=== PATIENT | female | born 1995 | race Asian ===

== ENCOUNTER 2019-07-31 07:14 | Emergency (ER) | payer OTHER ==
[~2019-07-31] VITALS: Ht 160 cm; Wt 63.6 kg
[~2019-07-31 07:14] MED LIST: BIRTH CONTROL PILL; MULTIPLE VITAMI1 CAP PO
[2019-07-31 07:18] VITALS: TEMP 98.4
[2019-07-31 07:33] LABS: COLLECTION METHOD CLEAN CATCH
[2019-07-31 07:43] LABS: MUCOUS Present /lpf; PH 5 (5-8); URINE APPEARANCE Cloudy; URINE BACTERIA Rare /hpf; URINE BILIRUBIN Negative (NEGATIVE); URINE BLOOD Negative (NEGATIVE); URINE COLOR Yellow; URINE GLUCOSE Negative (NEGATIVE); URINE KETONE Negative (NEGATIVE); URINE LEUKOCYTE ESTERASE Negative (NEGATIVE); URINE NITRATE Negative (NEGATIVE); URINE PROTEIN(semi-quant) Negative (NEGATIVE); URINE RBC 0-2 /hpf; URINE UROBILINOGEN Negative (NEGATIVE)
[2019-07-31 07:54] LABS: BASO % 0.1 % (0.0-2.0); EOS % 0.4 % (0-4.0); GRAN # 6.2 (1.4-6.5); GRAN % 81.3 % (42.2-75.2); HEMATOCRIT 40.6 % (37.0-47.0); HEMOGLOBIN 13.6 g/dl (12.5-16.0); LYMPH # 1.1 (1.2-3.4); LYMPH % 14.9 % (20.0-51.0); MEAN CELL VOLUME 96 fl (80.0-100.0); MEAN CORPUSCULAR HEMOGLOBIN 32 pg (27.0-31.0); MEAN CORPUSCULAR HGB CONC 34 g/dl (33.0-37.0); MEAN PLATELET VOLUME 9.4 fl (7.4-10.4); MONO # 0.2 (0.1-0.6); MONO % 3.2 % (1.7-9.3); PLATELET COUNT 230 K/mm3 (130-400); RED BLOOD COUNT 4.22 M/mm3 (4.10-5.30); REDCELL DISTRIBUTION WIDTH-CV 11.9 % (11.5-14.5)
[2019-07-31 08:09] LABS: ALANINE AMINOTRANSFERASE 17 U/L (9-52); ALBUMIN 4.7 gm/dL (3.5-5.0); ALKALINE PHOSPHATASE 43 U/L (50-136); ANION GAP 10 mmol/L (7-16); AST,SGOT 43 U/L (15-37); BILIRUBIN,TOTAL 0.7 mg/dL (0.0-1.0); BLOOD UREA NITROGEN 15 mg/dL (7-17); CALCIUM 9.1 mg/dL (8.4-10.2); CARBON DIOXIDE 24 mmol/L (22-30); CHLORIDE 106 mmol/L (98-107); CREATININE, serum 0.78 (0.52-1.25); GLUCOSE 103 mg/dL (74-106); LIPASE 49 U/L (23-300); POTASSIUM 4.4 mmol/L (3.4-5.0); SODIUM 140 mmol/L (137-145); TOTAL PROTEIN 8.6 gm/dL (6.4-8.2)
[2019-07-31 08:18] LABS: C-REACTIVE PROTEIN < 0.5 mg/dL (0.0-0.9)
[2019-07-31] MEDS ORDERED: ZOFRAN ODT4 MG PO (09:36)
[2019-07-31 09:53] VITALS: BP 112/72; PULSE 78
== END 2019-07-31 09:53 | disposition home or self-care (01) ==
LOC: COL.ER 07:14
PROVIDERS: Emergency Medicine
DX: R11.2 Nausea with vomiting, unspecified (principal); R19.7 Diarrhea, unspecified
CPT/HCPCS: J2405; J7030

== ENCOUNTER 2023-07-06 18:50 | Emergency (ER) | payer OTHER ==
[~2023-07-06] VITALS: Ht 160 cm; Wt 63.6 kg
[~2023-07-06 18:50] MED LIST changes: +ZOFRAN ODT4 MG PO
[2023-07-06 21:44] LABS: BASO % 0.3 % (0.0-2.0); EOS % 0.5 % (0.0-4.0); GRAN # 5.9 K/mm3 (1.4-6.5); GRAN % 67.2 % (42.2-75.2); HEMATOCRIT 40.6 % (37.0-47.0); HEMOGLOBIN 13.7 g/dl (12.5-16.0); LYMPH % 22.3 % (20.0-51.0); MEAN CELL VOLUME 96 fl (80.0-100.0); MEAN CORPUSCULAR HEMOGLOBIN 32 pg (27-31); MEAN CORPUSCULAR HGB CONC 34 g/dl (33.0-37.0); MEAN PLATELET VOLUME 9.3 fl (7.4-10.4); MONO # 0.8 K/mm3 (0.1-0.6); MONO % 9.6 % (1.7-9.3); PLATELET COUNT 238 K/mm3 (130-400); RED BLOOD COUNT 4.25 M/mm3 (4.10-5.30); REDCELL DISTRIBUTION WIDTH-CV 11.9 % (11.5-14.5)
[2023-07-06 22:00] LABS: ALBUMIN 3.9 gm/dL (3.5-5.0); BILIRUBIN,TOTAL 0.5 mg/dL (0.2-1.2); C-REACTIVE PROTEIN 3.91 mg/dL (0.00-0.50); CREATININE, serum 0.76 mg/dL (0.57-1.11); POTASSIUM 4.1 mmol/L (3.5-4.5); TOTAL PROTEIN 8.7 gm/dL (6.2-8.1)
[2023-07-06 23:02] VITALS: BP 101/67; PULSE 65; TEMP 97.9
== END 2023-07-06 23:02 | disposition home or self-care (01) ==
LOC: COL.ER 18:50
PROVIDERS: Nurse Practitioner
DX: J06.9 Acute upper respiratory infection, unspecified (principal); R51.9 Headache, unspecified